=== PATIENT | female | born 1960 | race Caucasian/White ===

== ENCOUNTER 2021-10-16 08:20 | Outpatient (CLI) | payer MEDICARE, SELFPAY ==
--- NOTE | 2021-10-16 08:27 | CT_ITS ---
WS: [id number] CT NECK TECHNIQUE: Contrast-enhanced CT of the neck with coronal and sagittal reformatted images. CLINICAL INFORMATION: CHRONIC LARYNGITIS/DYSPNEA/DYSPHONIA COMPARISON: None. DLP: 263.[address] scans at [facility] use at least one of these dose optimization techniques: automated e xposure control; mA and/or kV adjustment per patient size (includes targeted exams where dose is matc hed to clinical indication); or iterative reconstruction. FINDINGS: Mild mucosal thickening ethmoid air cells. Paranasal sinuses are otherwise well aerated. Mastoid air cells are well aerated. Partially visualized intracranial contents appear normal. Parotid glands are normal. Normal submandibular glands. Normal posterior nasopharynx. Normal vallecul a and epiglottis. Normal piriform sinuses. Normal prevertebral fat. Normal pterygopalatine fossa. Nor mal glottis and subglottic airway. No cervical lymphadenopathy. Dense cavernous carotid calcification. Moderate LEFT carotid bulb calcif ication. Mild RIGHT carotid bulb calcification. No cervical lymphadenopathy. Lung apices are well aerated. Mild hazy atelectasis and interstitial thickening in the lung apices. P artially visualized thoracic aorta appears normal. Moderate spondylitic changes cervical spine. Clust er of slightly prominent LEFT supra clavicular lymph nodes not pathologically enlarged likely reactiv e. CT/CT neck w con* [id number] IMPRESSION: 1. No evidence of supraglottic or glottic mass. Airway is patent. 2. Normal posterior nasopharynx. 3. Paranasal sinuses and mastoid air cells well aerated. 4. No cervical lymphadenopathy. 5. Mild RIGHT and moderate LEFT carotid bulb calcification. Dense cavernous ca rotid calcification intracranially somewhat advanced for patient this age. 6. Cluster of slightly prominent lymph nodes in the LEFT supraclavicular regio n with surrounding inflammatory stranding nonspecific but likely due to lymphad enitis. Largest lymph node measures 10 mm.
[2021-10-16] MEDS: iodixanol 320 mg/mL 100mL Btl IV (09:40)
== END 2021-10-16 08:21 | disposition home or self-care (01) ==
PROVIDERS: Visit Provider Otolaryngology
DX: J37.0 Chronic laryngitis (principal); R06.00 Dyspnea, unspecified; R49.0 Dysphonia; I65.23 Occlusion and stenosis of bilateral carotid arteries
CPT/HCPCS: 70491

== ENCOUNTER 2024-09-18 20:02 | Emergency (ER) | payer MEDICARE, MEDICAID, SELFPAY ==
[2024-09-18 20:21] VITALS: BP 120/71; PULSE 79; RESP 18; TEMP 36.4; O2SAT 94
--- NOTE | 2024-09-18 20:35 | XRR_ITS ---
PROCEDURE INFORMATION: Exam: XR Chest Exam date and time: 09/18/2024 9:03 PM Age: 64 years old Clinical indication: Cough and dyspnea; Additional info: Dyspnea/cough TECHNIQUE: Imaging protocol: Radiologic exam of the chest. Views: 1 view. COMPARISON: CT neck w con* [id number] 10/16/2021 9:13 AM FINDINGS: Lungs: Unremarkable. No consolidation or mass. Pleural spaces: Small bilateral pleural effusions are noted. Heart/Mediastinum: Mild cardiomegaly is noted. Bones/joints: Unremarkable. XR/XR chest 1V portable [id number] IMPRESSION: Cardiomegaly with bilateral pleural effusions
--- NOTE | 2024-09-18 20:36 | ECG_ITS ---
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 Measurements Intervals Pierce Rate: 79 P: 41 MO: 190 QRS: -34 QRSD: 77 T: 198 QT: 418 QTc: 481 Interpretive Statements SINUS RHYTHM POSSIBLE LEFT ATRIAL ENLARGEMENT [-0.1mV P-WAVE IN V1/V2] LEFT AXIS DEVIATION [QRS AXIS < -30] POSSIBLE ANTERIOR MYOCARDIAL INFARCTION , OF INDETERMINATE AGE [30 ms Q WAVE IN V3/V4, OR R < 0.2 mV IN V4] MODERATE T-WAVE ABNORMALITY, CONSIDER LATERAL ISCHEMIA [-0.1+ mV T-WAVE IN I/aVL/V5/V6] MODERATE T-WAVE ABNORMALITY, CONSIDER INFERIOR ISCHEMIA [-0.1+ mV T-WAVE IN II/aVF] Compared to ECG 06/28/2017 01:42:55 Left-axis deviation now present. Myocardial infarct finding now present T-wave abnormality now present. Possible ischemia now present Electronically Signed On 09-19-2024 17:44:05 CDT by Moo Duffy M.D. [id number] [id number]
[2024-09-18 21:05] LABS: Basophils % 0.6 %; Eosinophils % 0.6 %; Hematocrit 33.2 % (36-47); Lymphocytes # 1.2 10^3/uL (0.8-4.8); Lymphocytes % 16.9 %; Mean Corpuscular HGB Conc 31.3 g/dL (30-55); Mean Corpuscular Hemoglobin 28.7 pg (27-33); Mean Corpuscular Volume 91.5 fl (85-98); Mean Platelet Volume 9.6 fL (7.4-10.4); Monocytes # 0.6 10^3/uL (0.2-0.9); Monocytes % 9.3 %; Neutrophils # 4.98 10^3/uL (1.8-7.7); Neutrophils % 72.3 %; Nucleated Red Blood Cells % 0 %; Platelet Count 303 10^3/cmm (157-399); Red Blood Count 3.63 10^6/uL (3.85-5.65); Red Cell Distribution Width 14.6 % (12.1-15.1); White Blood Count 6.88 10^3/uL (3.29-11.43)
[2024-09-18 21:26] LABS: Alanine Aminotransferase 7 U/L (0-33); Albumin Level 3.3 g/dL (3.5-5.2); Alkaline Phosphatase 122 U/L (35-105); Anion Gap 17.6 (5-19); Aspartate Amino Transferase 9 U/L (0-32); Blood Urea Nitrogen 19 mg/dL (8-23); Calcium 9.1 mg/dL (8.5-10.5); Carbon Dioxide 24 mmol/L (22-29); Chloride 99 mmol/L (98-107); Creatine Phosphokinase 20 U/L (26-192); Creatinine Clr Calc Pharmacy 71.5271; Globulin 3.3 g/dL (1.3-4.6); Glomerular Filtration Rate 72.7 mL/min (90-130); Glucose 164 mg/dL (65-115); Osmolality Calculated 288 mOsm/kg (285-295); Potassium 4.6 mmol/L (3.5-5.1); Sodium 136 mmol/L (136-145); Total Bilirubin 0.7 mg/dL (0.15-1.2); Total Protein 6.6 g/dL (6.6-8.7)
[2024-09-18 22:35] VITALS: BP 130/60; PULSE 89; RESP 16; O2SAT 94
[2024-09-18 23:00] VITALS: BP 122/62; PULSE 87; RESP 16; O2SAT 93
[2024-09-18] MEDS: sodium chloride 0.9% 1,000 ML 999 ML IV (23:41)
[2024-09-18] MEDS: ketorolac 30 mg/mL INJ 15 MG IVP (23:42)
[2024-09-18] MEDS: ondansetron 2 mg/ML SDV 2 mL 4 MG IVP (23:42)
[2024-09-19] VITALS: BP 117/55; PULSE 83; RESP 16; O2SAT 92
[2024-09-19 00:09] LABS: Influenza A NEGATIVE (Negative); Influenza B NEGATIVE (Negative); Respiratory Syncytial Virus Ce NEGATIVE (Negative); SARS-CoV-2 PCR NEGATIVE (Negative)
[2024-09-19 01:00] VITALS: BP 107/57; PULSE 89; RESP 17; O2SAT 94
[2024-09-19 01:43] LABS: Bilirubin Urine Negative (Negative); Blood Urine Negative (Negative); Glucose Urine UA 3+ (Normal); Ketones Urine 2+ (Negative); Leukocyte Esterase Urine Negative (Negative); Nitrate Urine Negative (Negative); Protein Urine Negative (Negative); Urine Appearance Clear (CLEAR); Urine Color Yellow (Yellow)
[2024-09-19 01:48] LABS: Add Urine Microscopic? YES; Bacteria Urine None Seen /hpf; Hyaline Casts Urine 0-4 /lpf; RBC Urine 0-2 /hpf (0-2); Squamous Epithelial Cell Urine 0-5 /hpf (0-5); WBC Urine 0-5 /hpf (0-5)
[2024-09-19 02:01] LABS: Specific Gravity, Urine 1.034 (1.005-1.030)
[2024-09-19 02:20] VITALS: O2SAT 79
[2024-09-19 02:21] VITALS: O2SAT 97
--- NOTE | 2024-09-19 02:34 | ED_ITS ---
HPI - Weakness 2 General: Chief complaint: Weakness Stated complaint: Weakness\N\Pain All Over Time Seen by Provider: 09/18/24 22:47 History of Present Illness: Patient presents emerged part with complaint of generalized bodyaches and nausea and vomiting. Denies any localized abdominal pain. Denies any diarrhea. States she has had a mild cough and congestion. Was recently diagnosed with pneumonia and in the hospital but not currently on any antibiotics. Physical Exam 2 Const: COMMON NORMALS: no acute distress, average body habitus, patient oriented x3, no limitations, healthy appearing, alert and well nourished HENMT: COMMON NORMALS: normocephalic, atraumatic, hearing grossly normal bilaterally, external ears normal, EAC's normal, TM's normal bilaterally, Normal external nose present, Normal nasal mucous membranes and turbinates present, moist oral mucous membranes, oropharynx normal, dentition normal and gingiva normal HEAD & SCALP: normocephalic and atraumatic NOSE: Normal external nose present and Normal nasal mucous membranes and turbinates present E XTERNAL EAR: Yes external ears normal EXTERNAL AUDITORY CANAL: EAC's normal TYMPANIC MEMBRANE: TM's normal bilaterally Neck/C-Spine: COMMON NORMALS: no JVD Resp: COMMON NORMALS: normal respiratory effort, No retractions, No use of accessory muscles, clear to auscultation bilaterally and percussion normal A USCULTATION: clear to auscultation bilaterally PERCUSSION: percussion normal Cardio: COMMON NORMALS: no JVD, regular rate, regular rhythm, S1 normal heart sound present, S2 normal heart sound present, No gallops present (Cardio), No clicks present (Cardio), No murmurs present (Cardio), No rub (Cardio) and Peripheral pulses 2+ throughout RATE: regular rate RHYTHM: regular rhythm HEART SOUNDS: S1 normal heart sound present and S2 normal heart sound present PERIPHERAL PULSES: Peripheral pulses 2+ throughout GI: COMMON NORMALS: Normal to inspection, nondistended, normoactive bowel sounds present, Soft to palpation, non-tender, No hepatosplenomegaly present, no masses and no bruits PALPATION: Yes Soft to palpation and Yes No hepatosplenomegaly present Neuro: COMMON NORMALS: patient oriented x3 SENSORIUM/ORIENTATION: Yes alert Course 2 Vital Signs: Vital signs: Vital Signs Temperature 97.6 F 09/18/24 20:21 Pulse Rate 89 09/19/24 01:00 Respiratory Rate 17 09/19/24 01:00 Blood Pressure 107/57 09/19/24 01:00 Pulse Oximetry 97 09/19/24 02:21 Oxygen Delivery Me thod Nasal Cannula 09/19/24 02:21 Oxygen Flow Rate 2 09/19/24 02:21 MDM - Weakness Medical Decision Making Patient with nausea and vomiting and cough and congestion and generalized flulike symptoms with bodyaches. No fever. No significant abnormality noted on labs or imaging. Patient is feeling better after IV fluids and Toradol and Zofran. Patient's chest x-ray shows no acute disease. Patient not hypoxic. Do not see any indication for further imaging or workup at this time. Patient with no localized abdominal pain or no concern for surgical abdomen. Lab Data 09/18/24 20:50 09/18/24 20:50 Radiology Impressions Chest X-Ray 09/18/24 20:35 IMPRESSION: Cardiomegaly with bilateral pleural effusions Laboratory Results WBC 6.88 10^3/uL (3.29-11.43) 09/18/24 20:50 RBC 3.63 10^6/uL (3.85-5.65) L 09/18/24 20:50 Hgb 10.40 g/dL (11.27-16.99) L 09/18/24 20:50 Hct 33.2 % (36-47) L 09/18/24 20:50 MCV 91.5 fl (85-98) 09/18/24 20:50 MCH 28.7 pg (27-33) 09/18/24 20:50 MCHC 31.3 g/dL (30-55) 09/18/24 20:50 RDW 14.6 % (12.1-15.1) 09/18/24 20:50 Plt Count 303 10^3/cmm (157-399) 09/18/24 20:50 MPV 9.6 fL (7.4-10.4) 09/18/24 20:50 Neut % (Auto) 72.3 % 09/18/24 20:50 Lymph % (Auto) 16.9 % 09/18/24 20:50 [place] % (Auto) 9.3 % 09/18/24 20:50 Eos % (Auto) 0.6 % 09/18/24 20:50 Baso % (Auto) 0.6 % 09/18/24 20:50 Neut # (Auto) 4.98 10^3/uL (1.8-7.7) 09/18/24 20:50 Lymph # (Auto) 1.2 10^3/uL (0.8-4.8) 09/18/24 20:50 [place] # (Auto) 0.6 10^3/uL (0.2-0.9) 09/18/24 20:50 Eos # (Auto) 0.0 10^3/uL (0.0-0.8) 09/18/24 20:50 Baso # (Auto) 0.0 10^3/uL (0.0-0.1) 09/18/24 20:50 Nucleated RBC % (auto) 0 % 09/18/24 20:50 Nucleated RBCs # 0.0 /100WBC 09/18/24 20:50 Sodium 136 mmol/L (136-145) 09/18/24 20:50 Potassium 4.6 mmol/L (3.5-5.1) 09/18/24 20:50 Chloride 99 mmol/L (98-107) 09/18/24 20:50 Carbon Dioxide 24 mmol/L (22-29) 09/18/24 20:50 Anion Gap 17.6 (5-19) 09/18/24 20:50 BUN 19 mg/dL (8-23) 09/18/24 20:50 Creatinine 0.8 mg/dL (0.5-0.9) 09/18/24 20:50 GFR Calculation 72.7 mL/min (90-130) L 09/18/24 20:50 Glucose 164 mg/dL (65-115) H 09/18/24 20:50 Calculated Osmolality 288 mOsm/kg (285-295) 09/18/24 20:50 Calcium 9.1 mg/dL (8.5-10.5) 09/18/24 20:50 Total Bilirubin 0.7 mg/dL (0.15-1.2) 09/18/24 20:50 AST 9 U/L (0-32) 09/18/24 20:50 ALT 7 U/L (0-33) 09/18/24 20:50 Alkaline Phosphatase 122 U/L (35-105) H 09/18/24 20:50 Creatine Kinase 20 U/L (26-192) L 09/18/24 20:50 Total Protein 6.6 g/dL (6.6-8.7) 09/18/24 20:50 Albumin 3.3 g/dL (3.5-5.2) L 09/18/24 20:50 Globulin 3.3 g/dL (1.3-4.6) 09/18/24 20:50 Urine Color Yellow (Yellow) 09/19/24 01:30 Urine Appearance Clear (CLEAR) 09/19/24 01:30 Urine pH 7.0 (5-7) 09/19/24 01:30 Ur Specific [place] 1.034 (1.005-1.030) H 09/19/24 01:30 Urine Protein Negative (Negative) 09/19/24 01:30 Urine Glucose (UA) 3+ (Normal) H 09/19/24 01:30 Urine Ketones 2+ (Negative) H 09/19/24 01:30 Urine Blood Negative (Negative) 09/19/24 01:30 Urine Nitrate Negative (Negative) 09/19/24 01:30 Urine Bilirubin Negative (Negative) 09/19/24 01:30 Urine Urobilinogen 1.0 mg/dL (Negative) 09/19/24 01:30 Ur Leukocyte Esterase Negative (Negative) 09/19/24 01:30 Urine RBC 0-2 /hpf (0-2) 09/19/24 01:30 Urine WBC 0-5 /hpf (0-5) 09/19/24 01:30 Ur Squamous Epith Cells 0-5 /hpf (0-5) 09/19/24 01:30 Amorphous Sediment Not Reportable 09/19/24 01:30 Urine Bacteria None seen /hpf (NONE) 09/19/24 01:30 Hyaline Casts 0-4 /lpf H 09/19/24 01:30 Influenza A (PCR) Negative (Negative) 09/18/24 23:20 Influenza Type B (PCR) Negative (Negative) 09/18/24 23:20 RSV (PCR) Negative (Negative) 09/18/24 23:20 SARS-CoV-2 (PCR) Negative (Negative) 09/18/24 23:20 All radiology interpretation(s) finalized by discharge Discharge Plan Discharge Patient Disposition: Home Clinical Impression: Nausea & vomiting Condition: Stable Prescriptions: New ondansetron 4 mg tablet,disintegrating 4 mg PO Q8H 5 Days Qty: 15 0RF Discharge Orders: Discharge ED (Routine); Ordered 09/19/24 Ordered By: Cuong Kilpatrick Discharge Diet: Advance as tolerated Discharge Activity: Resume usual activity Patient Instructions: Opioid Safety, Pain Management Print Language: Macedonian Coding Level of Care Code ED Security System Analyst for Chg Fwd Related Data Previous Rx's ?Medication ?Instructions ?Recorded ondansetron 4 mg disintegrating 4 mg PO Q8H 5 days #15 tabs 09/19/24 tablet Allergies Allergy/AdvReac Type Severity Reaction Status Date / Time egg Allergy Unknown Verified 09/18/24 20:31
[2024-09-19 02:58] VITALS: BP 112/57; PULSE 68; RESP 16; O2SAT 99
== END 2024-09-19 03:00 | disposition home or self-care (01) ==
PROVIDERS: Family Medicine; Emergency Provider Emergency Medicine
DX: R11.2 Nausea with vomiting, unspecified (principal); Z11.52 Encounter for screening for COVID-19
CPT/HCPCS: 36415; 71045; 80053; 81001; 82550; 85025; 87637; 93005; 96361; 96374; 96375; 99285; J1885; J2405; J7030